=== PATIENT | female | born 1945 | race Caucasian/White ===

== ENCOUNTER 2017-06-05 09:44 | Emergency (ER) | payer MEDICARE, OTHER, SELFPAY ==
[~2017-06-05] VITALS: Ht 170.2 cm; Wt 98.0 kg
[2017-06-05] MEDS ORDERED: SODIUM CHLORIDE FLUSH 10ML SYR IVF ONE (10:30)
[2017-06-05 11:25] LABS: ASPARTATE AMINO TRANSFERASE 18 U/L (15-37); BLOOD UREA NITROGEN 15 mg/dL (7-18)
[2017-06-05 11:29] VITALS: BP 171/93
[2017-06-05 11:30] LABS: IS PT STATUS REG ER OR PRE ER? YES
== END 2017-06-05 11:59 | disposition home or self-care (01) ==
LOC: ED 10:59
DX: J45.40 Moderate persistent asthma, uncomplicated (principal); I10 Essential (primary) hypertension; E78.00 Pure hypercholesterolemia, unspecified; E11.9 Type 2 diabetes mellitus without complications; J44.9 Chronic obstructive pulmonary disease, unspecified
CPT/HCPCS: 36415; 71010; 80053; 83605; 83880; 84145; 84443; 84484; 85025; 87040; 93005; 99285